=== PATIENT | female | born 1970 | race Caucasian/White ===

== ENCOUNTER 2024-04-19 13:08 | Emergency (ER) | payer OTHER ==
[~2024-04-19] VITALS: Wt 82.6 kg
[2024-04-19 14:23] LABS: BASO % 0.4 % (0.0-1.0); EOS # 0.2 10*3/uL (0.0-0.4); EOS % 2.1 % (1.0-4.0); HEMATOCRIT 43.9 % (37.0-47.0); MEAN CELL VOLUME 92.6 fl (81.0-99.0); MEAN CORPUSCULAR HGB 31.2 pg (27.0-31.0); MEAN CORPUSCULAR HGB CONC 33.7 g/dl (33.0-37.0); MEAN PLATELET VOLUME 9.4 fl (9.6-12.3); MONO # 0.3 10*3/uL (0.1-1.0); MONO % 4.7 % (3.0-9.0); NEUT # 4.5 10*3/uL (2.3-7.9); PLATELET COUNT AUTOMATED 154 10*3/uL (130-400); RED BLOOD COUNT 4.74 10*6/uL (4.10-5.10); RED CELL DISTRI WIDTH 14.7 % (0-14.5); WHITE BLOOD COUNT 7.2 10*3/uL (4.8-10.8)
[2024-04-19 14:48] LABS: BUN 7 mg/dl (9-23); CHLORIDE 100 mmol/L (98-107)
== END 2024-04-19 15:24 | disposition home or self-care (01) ==
LOC: ED 13:08
PROVIDERS: Emergency Medicine
DX: M79.89 Other specified soft tissue disorders (principal); R53.83 Other fatigue; I48.91 Unspecified atrial fibrillation; I10 Essential (primary) hypertension; E78.5 Hyperlipidemia, unspecified; E11.9 Type 2 diabetes mellitus without complications; Z88.0 Allergy status to penicillin

== ENCOUNTER 2025-02-09 14:42 | Observation (INO) | payer MEDICAID ==
[~2025-02-09] VITALS: Ht 157.4 cm; Wt 78.6 kg
[2025-02-09 14:54] VITALS: BP 151/63
[2025-02-09] MEDS ORDERED: Ondansetron Hydrochloride 4 MG TAB PO ONE (15:20)
[2025-02-09 15:28] LABS: BASO # 0.1 10*3/uL (0.0-0.1); BASO % 0.6 % (0.0-1.0); EOS # 0.1 10*3/uL (0.0-0.4); EOS % 1.3 % (1.0-4.0); MEAN CELL VOLUME 93.5 fl (81.0-99.0); MEAN CORPUSCULAR HGB 32.2 pg (27.0-31.0); MEAN PLATELET VOLUME 8.6 fl (9.6-12.3); MONO # 0.4 10*3/uL (0.1-1.0); MONO % 4.2 % (3.0-9.0); NEUT # 5.9 10*3/uL (2.3-7.9); NEUT % 69.6 % (47.0-73.0); NUCLEATED RED BLOOD CELL 0.0 % (0.0-0.0); NUCLEATED RED BLOOD CELL 0.0 10*3/uL (0.0-0.0); PLATELET COUNT AUTOMATED 213 10*3/uL (130-400); RED CELL DISTRI WIDTH 14.3 % (0-14.5)
[2025-02-09 15:51] LABS: BUN 12 mg/dl (9-23); SGPT/ALT < 7 U/L (5-49)
[2025-02-09] MEDS ORDERED: SODIUM CHLORIDE 0.9% 500 ML IV ONE (17:50)
[2025-02-09] MEDS ORDERED: ACETAMINOPHEN 325 MG TAB PO PRN (19:25)
[2025-02-09] MEDS ORDERED: Ondansetron Hydrochloride 4 MG/2 ML VIAL IV PRN (19:25)
[2025-02-09] MEDS ORDERED: DEXTROSE 50% 25 GM/50 ML VIAL IV PRN (19:25)
[2025-02-09] MEDS ORDERED: ZOLPIDEM10 MG PO (19:34)
[2025-02-09] MEDS ORDERED: FENOFIBRATE145 M1 PO (19:36)
[2025-02-09] MEDS ORDERED: GABAPENTIN800 MG PO (19:36)
[2025-02-09] MEDS ORDERED: TRULICITY0.75 MG/0. SC (19:36)
[2025-02-09] MEDS ORDERED: DIGOXIN125 MCG PO (19:37)
[2025-02-09] MEDS ORDERED: METFORMIN HYD1000 MG PO (19:37)
[2025-02-09] MEDS ORDERED: HUMALOG100 UNIT/1 SC (19:37)
[2025-02-09] MEDS ORDERED: SUBLOCADE300 MG/1.5 SQ (19:38)
[2025-02-09] MEDS ORDERED: Bactroban Oint22 GM T (19:39)
[2025-02-09] MEDS ORDERED: METOPROLOL SUCC25 M2 PO (19:39)
[2025-02-09] MEDS ORDERED: LEVETIRACETAM500 MG PO (19:39)
[2025-02-09] MEDS ORDERED: ATORVASTATIN CA80 M1 PO (19:40)
[2025-02-09] MEDS ORDERED: OMEPRAZOLE40 MG PO (19:40)
[2025-02-09] MEDS ORDERED: BUMETANIDE1 MG PO (19:40)
[2025-02-09] MEDS ORDERED: FUROSEMIDE40 MG PO (19:41)
[2025-02-09] MEDS ORDERED: Ventolin 02.5 MG/3 M INH (19:42)
[2025-02-09 19:53] VITALS: BP 128/68
[2025-02-09 20:00] VITALS: BP 142/68
[2025-02-09 20:03] LABS: BILIRUBIN 2+ (Negative); BLOOD Trace-Lysed (Negative); CLARITY Cloudy (Clear); COLOR Dark Yellow (Yellow); KETONE 1+ (Negative); LEUKO ESTERASE Trace (Negative); NITRITE Negative (Negative); PH 5.5 (4.5-8.0); SPECIFIC GRAVITY >= 1.030 (1.001-1.030); UROBILINOGEN 1.0 E.U./dl (0.0-1.0)
[2025-02-09 20:09] LABS: BACTERIA 1+; EPITHELIAL CELLS 21-30; MUCOUS TRACE
[2025-02-09] MEDS ORDERED: ATORVASTATIN CALCIUM 80 MG TAB PO SCH (22:00)
[2025-02-09] MEDS ORDERED: FENOFIBRATE 145 MG TAB PO SCH (22:00)
[2025-02-09] MEDS ORDERED: ZOLPIDEM TARTRATE 10 MG TAB PO SCH (22:00)
[2025-02-09] MEDS ORDERED: INSULIN LISPRO 1 UNIT/0.01 ML SQ SCH (22:00)
[2025-02-09] MEDS ORDERED: LEVETIRACETAM 500 MG TAB PO SCH (22:00)
[2025-02-10] VITALS: BP 120/58
[2025-02-10] MEDS ORDERED: GABAPENTIN 800 MG TAB PO SCH
[2025-02-10 04:00] VITALS: BP 148/67
[2025-02-10 05:13] LABS: BUN 12 mg/dl (9-23); FREE T4 1.07 ng/dl (0.89-1.76); SGPT/ALT < 7 U/L (5-49)
[2025-02-10 05:14] LABS: VITAMIN D, 25-HYDROXY 12.9 ng/mL (30-100)
[2025-02-10 06:05] LABS: BASO # 0.1 10*3/uL (0.0-0.1); BASO % 0.6 % (0.0-1.0); EOS # 0.2 10*3/uL (0.0-0.4); EOS % 1.8 % (1.0-4.0); MEAN CELL VOLUME 93.7 fl (81.0-99.0); MEAN CORPUSCULAR HGB 32.1 pg (27.0-31.0); MEAN PLATELET VOLUME 9.2 fl (9.6-12.3); MONO # 0.5 10*3/uL (0.1-1.0); MONO % 6.2 % (3.0-9.0); NEUT # 4.3 10*3/uL (2.3-7.9); NEUT % 52.9 % (47.0-73.0); NUCLEATED RED BLOOD CELL 0.0 % (0.0-0.0); NUCLEATED RED BLOOD CELL 0.0 10*3/uL (0.0-0.0); PLATELET COUNT AUTOMATED 196 10*3/uL (130-400); RED CELL DISTRI WIDTH 14.6 % (0-14.5)
[2025-02-10 08:00] VITALS: BP 130/61
[2025-02-10] MEDS ORDERED: BUMETANIDE 1 MG TAB PO SCH (10:00)
[2025-02-10] MEDS ORDERED: METOPROLOL SUCCINATE XR 25 MG TAB PO SCH (10:00)
[2025-02-10 12:00] VITALS: BP 131/67
[2025-02-10] MEDS ORDERED: VAZALORE81 MG PO (12:21)
[2025-02-10] MEDS ORDERED: DIGOXIN 125 MCG TAB PO SCH (14:00)
== END 2025-02-10 13:30 | disposition home or self-care (01) ==
LOC: ED 14:42 → ICCU 18:41 → EDHOLD 18:41 → ICCU 18:41
PROVIDERS: Student in an Organized Health Care Education/Training Program; ADMIT Family Medicine; ATTEND Family Medicine
DX: R11.2 Nausea with vomiting, unspecified (principal); M79.89 Other specified soft tissue disorders; R94.31 Abnormal electrocardiogram [ECG] [EKG]; E83.42 Hypomagnesemia; F17.210 Nicotine dependence, cigarettes, uncomplicated; E11.9 Type 2 diabetes mellitus without complications; K21.9 Gastro-esophageal reflux disease without esophagitis; E78.5 Hyperlipidemia, unspecified; D72.829 Elevated white blood cell count, unspecified; Z79.899 Other long term (current) drug therapy